=== PATIENT | male | born 1995 | race Caucasian/White ===

== ENCOUNTER 2019-02-04 14:03 | Emergency (ER) | payer BC ==
[~2019-02-04] VITALS: Ht 180.3 cm; Wt 57.2 kg
[2019-02-04 14:06] VITALS: BP 160/110
--- NOTE | 2019-02-04 14:10 | NUR ---
23 Y MALE BIB FAMILY C/O MANIC EPISODE. PT STOPPED TAKING LATUDA 1-2 MONTHS AGO. PT REPETITIVE, REPORTS HALLUCINATIONS, REPORTS SI LAST WEEKEND BUT DENIES IT AT THIS TIME. PT TACHY AT 111. PT ALERT AND ORIENTED. BED IS DOWN, LOCKED, BED RAIL X 1, ERMD TO SEE PT. MEDHX:BIPOLAR RX:LATUDA
--- NOTE | 2019-02-04 14:11 | NUR ---
PT STATES HE WAS TAKING 250 MG OF LUTADA
--- NOTE | 2019-02-04 14:15 | NUR ---
DR ELIZABETH AT BEDSIDE FOR PT EVALUATION
[2019-02-04] MEDS ORDERED: LORazepam 2 MG/ML VIAL IM ONE (14:20)
[2019-02-04] MEDS ORDERED: HALOPERIDOL IM 5 MG/ML VIAL IM ONE (14:20)
--- NOTE | 2019-02-04 14:35 | NUR ---
PT AMB TO RESTROOM FOR URINE SAMPLE
--- NOTE | 2019-02-04 14:38 | NUR ---
[facility] AT BEDSIDE
[2019-02-04 14:53] LABS: BASOPHILS # (AUTO) 0.1 K/uL (0.00-0.22); BASOPHILS % (AUTO) 0.9 % (0.0-2.0); EOSINOPHILS % (AUTO) 0.6 % (0.0-4.0); HEMATOCRIT 43.9 % (36-52); HEMOGLOBIN 14.9 g/dL (12.0-18.0); LYMPHOCYTES # (AUTO) 1.8 K/uL (2.0-11.5); LYMPHOCYTES % (AUTO) 23.6 % (20.5-51.1); MEAN CORPUSCULAR HEMOGLOBIN 27 pg (27-31); MEAN CORPUSCULAR HGB CONC 34 g/dL (33-37); MEAN CORPUSCULAR VOLUME 80.1 fL (80-94); MONOCYTES # (AUTO) 0.5 K/uL (0.8-1.0); MONOCYTES % (AUTO) 6.5 % (1.7-9.3); NEUTROPHILS # (AUTO) 5.1 K/uL (1.8-7.7); NEUTROPHILS % (AUTO) 68.4 % (42.2-75.2); PLATELET COUNT (AUTO) 251 K/uL (140-450); RED BLOOD CELL COUNT(AUTO) 5.47 MIL/uL (4.20-6.10); RED CELL DISTRIBUTION WIDTH 13.3 % (11.6-13.7); WHITE BLOOD COUNT (AUTO) 7.5 K/uL (4.8-10.8)
[2019-02-04 14:59] LABS: BARBITURATE, URINE NEG. ng/ml (NEG <=200); BENZODIAZEPINE, URINE NEG. ng/mL (NEG <=200); CANNABINOID, URINE POS. ng/mL (NEG <=50); COCAINE, URINE NEG. ng/mL (NEG <=300); OPIATE, URINE NEG. ng/mL (NEG <=2000); PHENCYCLIDINE SCREEN,URINE NEG. ng/mL (NEG <=25)
[2019-02-04 15:25] LABS: ANION GAP 15.5 (8-16); CARBON DIOXIDE 28.4 mmol/L (21-32); CHLORIDE 99 mmol/L (98-107); CREATININE 1.3 mg/dL (0.7-1.3); GFR ARICAN-AMERICAN 87 mL/min (>90); GLUCOSE 154 mg/dL (74-106); POTASSIUM 3.9 mmol/L (3.5-5.1); SODIUM SERUM 139 mmol/L (136-145); UREA NITROGEN, BLOOD 16 mg/dL (7-18)
[2019-02-04 15:30] LABS: ALBUMIN 4.8 g/dL (3.4-5.0); ASPARTATE AMINOTRANSFERASE 13 U/L (15-37); TOTAL BILIRUBIN 0.9 mg/dL (0.0-1.0)
[2019-02-04 15:32] LABS: SALICYLATE < 2.8 mg/dL (2.8-20.0)
--- NOTE | 2019-02-04 15:39 | NUR ---
GAVE REPORT TO DR MENCHACA, PSYCHIATRIST
--- NOTE | 2019-02-04 15:41 | NUR ---
DR MENCHACA SPEAKING WITH PT AT THIS TIME
[2019-02-04 15:50] LABS: ACETAMINOPHEN < 0.5 ug/ml (10-30)
--- NOTE | 2019-02-04 15:51 | NUR ---
DR CASILLAS RECOMMENDS PT BE HOSPITALIZED AND GIVEN LATUDA. DR CASILLAS AWARE THAT JONES MELENDEZ DOES NOT CARRY LATUDA Addendum: 02/04/19 at 1558 by [email or web address] HOSPITALIZED AT A PSYCH KIDD
--- NOTE | 2019-02-04 16:28 | NUR ---
PT PLACED ON HOLD. PER DR MENCHACA, PT STATES HE HAS SUICIDAL THOUGHTS BUT NO SPECIFIC PLANS
--- NOTE | 2019-02-04 16:30 | NUR ---
PT PLACED IN GOWN, ALL OBJECTS REMOVED FROM ROOM. DR ELIZABETH PLACING HOLD AT THIS TIME.
--- NOTE | 2019-02-04 17:15 | NUR ---
HISTORY OF BIPOLAR DISORDER AND NON COMPLAINT WITH MEDICATIONS, GRAVELY DISABLED AND DANGER TO SELF. HOLD START TIME 1715. 1-1 MONITORING BY [facility] LEIVA.
--- NOTE | 2019-02-04 17:29 | NUR ---
[facility] EMT AT BEDSIDE FOR 1-1 MONITORING. PT SLEEPING IN BED. MOTHER BEDSIDE.
--- NOTE | 2019-02-04 18:14 | NUR ---
Black nicolas in EDM - 02/04/19 at 1816 by [email or web address] NEW BP 80/48, DR ELIZABETH NOTIFIED. STARTING PT ON 1L NS BOLUS
--- NOTE | 2019-02-04 18:16 | NUR ---
VSS AT THIS TIME. MOTHER BEDSIDE. [facility] 1-1 FOR PT MONITORING
--- NOTE | 2019-02-04 18:48 | NUR ---
SPOKE WITH KENDY FROM [facility] IN [place]. ACCEPTING DR PRASAD
--- NOTE | 2019-02-04 19:10 | NUR ---
REPORT GIVEN TO TYREE GARIBAY, TRANSFER OF CARE AT THIS TIME
--- NOTE | 2019-02-04 19:14 | NUR ---
TRANSFER TEAM APPROX 1 HOUR ETA
--- NOTE | 2019-02-04 19:55 | NUR ---
[facility] AT BEDSIDE
--- NOTE | 2019-02-04 20:03 | NUR ---
GEMINI AT BEDSIDE FOR TRANSFER TO [facility] VIA GURNEY/WHEELCHAIR. REPORT PROVIDED TO RECIEVING FACILITY. REPORT TO GEMINI KENT. PT ACTING APPROPRIATLY, SPEAKING IN CLEAR AND COMPLETE SENTENCES. PT DISCHARGED AT THIS TIME.
[2019-02-04 20:05] VITALS: BP 114/85
--- NOTE | 2019-02-04 20:07 | NUR ---
PT TAKEN BY [facility]SPORT TO [facility]
== END 2019-02-04 20:07 | disposition designated cancer center or children's hospital (05) ==
LOC: MED 14:03
DX: F32.9 Major depressive disorder, single episode, unspecified (principal); F30.9 Manic episode, unspecified; R44.1 Visual hallucinations
CPT/HCPCS: 36415; 80053; 80305; 85025; 96372; 99285; G0480; G0482; J1630; J2060